=== PATIENT | male | born 1995 ===

== ENCOUNTER 2019-02-05 21:49 | Emergency (ER) | payer OTHER ==
[2019-02-05 22:04] VITALS: BP 118/67
[2019-02-05] MEDS ORDERED: BENADRYL PO ONE ×2 (22:04→22:11)
[2019-02-05] MEDS ORDERED: PEPCID PO ONE (22:04)
[2019-02-05] MEDS ORDERED: SOLU-Medrol IM ONE (22:04)
--- NOTE | 2019-02-05 22:04 | Event Note ---
ED Screening Note ED Screening Note: woke up this morning with itchin skin diffuse rash no new foods, soaps, detergents, medicines hasnt been outside no PMHx no allergies to meds took a benadryl 6 hours ago non smoker non drinker no drug use This initial assessment/diagnostic orders/clinical plan/treatment(s) is/are subject to change based on patients health status, clinical progression and re- assessment by fellow clinical providers in the ED. Further treatment and workup at subsequent clinical providers discretion. Patient/guardian urged not to elope from the ED as their condition may be serious if not clinically assessed and managed. Initial orders include: benadryl, pepcid, solumedrol
--- NOTE | 2019-02-05 22:41 | Emergency Department Report ---
ED Rash HPI - HPI Chief Complaint: Skin Rash Stated Complaint: ALLERGIC REACTION Time Seen by Provider: 02/05/19 22:02 Duration: 1 Day Location: Upper Extremities Suspected Cause: Unknown Rash Symptoms: Yes Itching, No Facial Swelling, No Tongue/Oral Swelling, No Breathing Difficulties, No Choking Sensation, No Wheezing/Dyspnea, No Peeling, No Blistering, No Fever Severity: moderate Other History: woke up this morning with itchin skin. diffuse rash. no new foods, soaps, detergents, medicines. hasnt been outside. no PMHx. no allergies to meds. took a benadryl 6 hours ago ED Review of Systems ROS: Stated complaint: ALLERGIC REACTION Other details as noted in HPI Comment: All other systems reviewed and negative Constitutional: denies: chills Eyes: denies: eye pain ENT: denies: ear pain Respiratory: denies: cough, orthopnea Endocrine: denies: excessive sweating, flushing, intolerance to cold Gastrointestinal: denies: nausea, vomiting Genitourinary: denies: urgency, dysuria Skin: rash ED Past Medical Hx - Past Medical History Previous Medical History?: No - Surgical History Past Surgical History?: No - Social History Smoking Status: Never Smoker Substance Use Type: None - Medications Home Medications: Home Medications Medication Instructions Recorded Confirmed Last Taken Type Prednisone [predniSONE 5 mg (6-Day 5 mg PO .TAPER #1 tab.ds.pk 02/05/19 Unknown Rx Pack, 21 Tabs)] diphenhydrAMINE [Benadryl CAP] 25 mg PO Q8HR PRN #30 capsule 02/05/19 Unknown Rx Rash Exam - Exam General: Vital signs noted. No distress. Alert and acting appropriately. HEENT: No Periorbital Edema, No Conjuctival Injection, No Chemosis, No Perioral Edema, No Tongue Edema, No Uvular Edema, No Compromised Airway, No Drooling Lungs: No Good Air Exchange, No Wheezes, No Ronchi, No Stridor, No Cough, No Labored Respirations, No Retractions, No Use of Accessory Muscles, No Other Abnormal Lung Sounds Heart: No Regular, No Murmur Skin: Yes Urticarial Rash, Yes Maculopapular Rash, Yes Erythema, No Morbilliform rash, No Bulla(e), No Excoriations, No Weeping, No Tenderness, No Edema, No Encrustations, No Other Other: Positive: Abdomen Normal, Neurologic Normal, Musculoskeletal Normal ED Course Vital Signs 02/05/19 22:02 Temperature 97.7 F Pulse Rate 60 Respiratory 18 Rate Blood Pressure 118/67 O2 Sat by Pulse 100 Oximetry ED Medical Decision Making - Medical Decision Making patient received benadryl, famotidine,solumedrol in ER, symptoms improved, will d/c home f/u with pcp. - Differential Diagnosis acute allergic reaction, kristen caots. Critical care attestation.: If time is entered above; I have spent that time in minutes in the direct care of this critically ill patient, excluding procedure time. ED Disposition Clinical Impression: Acute allergic reaction Qualifiers: Encounter type: initial encounter Qualified Code(s): T78.40XA - Allergy, unspecified, initial encounter Disposition: - TO HOME OR SELFCARE Is pt being admited?: No Does the pt Need Aspirin: No Condition: Stable
== END 2019-02-05 23:19 | disposition home or self-care (01) ==
LOC: ED 21:49
DX: T78.40XA Allergy, unspecified, initial encounter (principal); L50.0 Allergic urticaria; Z79.899 Other long term (current) drug therapy; X58.XXXA Exposure to other specified factors, initial encounter
CPT/HCPCS: 96372; 99282; J2930

== ENCOUNTER 2020-12-15 21:55 | Emergency (ER) | payer SELFPAY ==
[2020-12-15] MEDS ORDERED: NEOMY 3.5 MG/BACIT 400 UNITS/POLY B 5000 UNITS/GM OINT PACKET TP ONE (22:34)
[2020-12-15] MEDS ORDERED: HYDROcodone/ACETAMINOPHEN 5-325 MG TAB PO ONE (22:34)
[2020-12-15] MEDS ORDERED: TETANUS,DIPH,PERTUSS(ACELL) VACCINE 0.5 ML SYRINGE IM ONE (22:34)
[2020-12-15] MEDS ORDERED: IBUPROFEN 800 MG TAB PO ONE (22:34)
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
[2020-12-16 00:22] VITALS: BP 145/78
== END 2020-12-16 00:10 | disposition home or self-care (01) ==
LOC: ED 21:55
DX: T20.10XA Burn of first degree of head, face, and neck, unspecified site, initial encounter (principal); T31.0 Burns involving less than 10% of body surface; Z79.899 Other long term (current) drug therapy; X08.8XXA Exposure to other specified smoke, fire and flames, initial encounter; Y93.89 Activity, other specified; Y92.89 Other specified places as the place of occurrence of the external cause; Y99.8 Other external cause status
CPT/HCPCS: 16000; 90471; 90715; 99282; A6250; 99283